=== PATIENT | female | born 1950 | race Caucasian/White ===

== ENCOUNTER 2017-03-25 07:08 | Day surgery (SDC) | payer OTHER ==
[2017-03-23 11:12] LABS: HEMATOCRIT 41.4 % (36.0-48.0)
[2017-03-23 11:30] LABS: CALCIUM, SERUM 9.5 MG/DL (8.5-10.4); CHLORIDE, SERUM 101 MMOL/L (96-112); CO2 (CARBON DIOXIDE) 31 MMOL/L (24-34); CREATININE 1.16 MG/DL (0.55-1.02); GFR AFRICAN AMERICAN 57 ML/MIN (>=60); GFR NON AFRICAN AMERICAN 49 ML/MIN (>=60); GLUCOSE, SERUM 118 MG/DL (60-99); POTASSIUM, SERUM 3.5 MMOL/L (3.5-5.3); SODIUM, SERUM 141 MMOL/L (135-148)
[2017-03-23 11:31] LABS: BUN (BLOOD UREA NITROGEN) 15 MG/DL (6-23)
--- NOTE | ~2017-03-25 | OP ---
[facility] Of [place] [id number] [place]. [address] NAME: [address] : 54 STATUS : REG [facility] PAT#: [id number] AGE: 67 ADM/REG DATE : 03/25/17 MR#: [id number] REPORT SERV DATE: 03/25/17 DICTATED BY: RUPALI AZUL DATE: 03/25/17 REPORT STATUS : Draft TRANSCRIBED BY: MODL DATE: 03/25/17 DATE OF PROCEDURE: 03/25/2017 PREOPERATIVE DIAGNOSES: 1. Left upper arm deep subcutaneous mass. 2. Obesity. 3. Hypertension. 4. Polyarthritis. POSTOPERATIVE DIAGNOSES: 1. Left upper arm deep subcutaneous mass. 2. Obesity. 3. Hypertension. 4. Polyarthritis. PROCEDURE: Excision of deep subcutaneous left upper arm lipoma with layered closure (7.5 cm). ANESTHESIA: General. 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 COMPLICATIONS: None. DRAINS: None. ESTIMATED BLOOD LOSS: 10 mL. FINDINGS: The patient was noted to have an indiscrete lipoma of the deep subcutaneous tissue abutting the deltoid muscle fascia that was excised and closed in layers. OPERATIVE TECHNIQUE: The patient was brought to the operating room, placed on the table in supine position. She had general endotracheal anesthesia. She was prepped and draped in sterile fashion. A time-out was completed. She had local anesthesia instilled in longitudinal fashion over the mass. A 15 blade knife was then used to make a longitudinal incision. This incision was carried through the subcutaneous tissues down to the level of the mass. It was then excised circumferentially using electrocautery down to the level of the muscle fascia. It was sent to Pathology. The wound was thoroughly irrigated, and hemostasis was obtained using electrocautery. The deep and superficial subcutaneous tissues were then reapproximated using interrupted Vicryl sutures followed by running Monocryl subcuticular stitch. Sterile dressing was applied. She was extubated and taken to the recovery room in stable condition. All sponge and needle counts reported correct. /MODL Record Of [place] [id number] [facility] [place]. [address] NAME: [address]ER [address] : 54 STATUS : REG [facility] PAT#: [id number] AGE: 67 ADM/REG DATE : 03/25/17 MR#: [id number] REPORT SERV DATE: 03/25/17 DICTATED BY: RUPALI AZUL DATE: 03/25/17 REPORT STATUS : Draft TRANSCRIBED BY: BENNIE DATE: 03/25/17 Rupali Azul M.D. / [id number] CC: Ray Swartz N.P.
[~2017-03-25 07:08] MED LIST: ASAB PO; FOLIC ACID800 MCG PO; HARD NAILS PO; HYDROCHLOROT25 MG PO; KLOR-CON 1010 MEQ PO; L20 PO; PLAQ200B PO; VITE PO
== END 2017-03-25 13:01 | disposition home or self-care (01) ==
LOC: SDC 07:08
PROVIDERS: Surgery
PROC: 0XB Anatomical Regions, Upper Extremities, Excision (ICD-10-PCS; principal; 2017-03-25 09:00)
DX: D17.22 Benign lipomatous neoplasm of skin and subcutaneous tissue of left arm (principal); E66.9 Obesity, unspecified; I10 Essential (primary) hypertension; M13.0 Polyarthritis, unspecified; Z68.34 Body mass index [BMI] 34.0-34.9, adult; Z88.2 Allergy status to sulfonamides; Z90.710 Acquired absence of both cervix and uterus; Z90.49 Acquired absence of other specified parts of digestive tract; Z98.890 Other specified postprocedural states
CPT/HCPCS: 80048; 85014; 85018; 88304; 93005; A9270-GY; J0690; J2250; J2405; J3010